=== PATIENT | male | born 1970 | race Caucasian/White ===

== ENCOUNTER 2016-10-07 16:15 | Emergency (ER) | payer OTHER, SELFPAY ==
[~2016-10-07] VITALS: Ht 167.6 cm; Wt 86.2 kg
[2016-10-07] MEDS ORDERED: ZOLO50TA PO (16:43)
[2016-10-07] MEDS ORDERED: FLOM5CAP PO (16:43)
[2016-10-07] MEDS ORDERED: CLON0.5T PO ×2 (16:43→17:41)
[2016-10-07] MEDS ORDERED: GABA-283 PO (16:43)
[2016-10-07] MEDS ORDERED: AMOX875T2 PO (16:43)
[2016-10-07] MEDS ORDERED: TRUL0.5I SC (16:43)
[2016-10-07] MEDS ORDERED: METF500T PO (16:43)
[2016-10-07] MEDS ORDERED: clonazePAM 1 MG TAB PO ONE (17:30)
[2016-10-07] MEDS ORDERED: clonazePAM 0.5 MG TAB PO ONE (18:30)
[2016-10-07 18:47] VITALS: BP 118/71
== END 2016-10-07 18:50 | disposition home or self-care (01) ==
LOC: M ED 17:55
DX: Z76.0 Encounter for issue of repeat prescription (principal); F41.9 Anxiety disorder, unspecified; Z88.2 Allergy status to sulfonamides; Z79.899 Other long term (current) drug therapy; Z79.84 Long term (current) use of oral hypoglycemic drugs; J45.909 Unspecified asthma, uncomplicated; E11.9 Type 2 diabetes mellitus without complications

== ENCOUNTER → 2017-03-15 | Outpatient (REF) | payer MEDICAID, OTHER ==
[~2017-03-15] MED LIST: AMOX875T2 PO; CLON0.5T PO; FLOM5CAP PO; GABA-283 PO; LORA1TAB12 PO; METF500T13 PO; TRUL0.5I SC; ZOLO50TA PO
[2017-03-15 13:59] LABS: ALBUMIN 4.1 GM/DL (3.2-5.2); ALBUMIN/GLOBULIN RATIO 1.28 (1.00-1.93); ALKALINE PHOSPHATASE 120 U/L (45-117); ALT/SGPT 33 U/L (12-78); ANION GAP 9 MEQ/L (8-16); AST/SGOT 16 U/L (15-37); BILIRUBIN,TOTAL 0.3 MG/DL (0.2-1.0); BLOOD UREA NITROGEN 14 MG/DL (7-18); CARBON DIOXIDE LEVEL 27 MEQ/L (21-32); CHLORIDE LEVEL 106 MEQ/L (98-107); CHOLESTEROL LEVEL 194 MG/DL (<200); CREATININE FOR GFR 0.93 MG/DL (0.70-1.30); FREE T4 1.11 NG/DL (0.76-1.46); GLOMERULAR FILTRATION RATE > 60.0 (>60); GLUCOSE, FASTING 144 MG/DL (70-105); POTASSIUM SERUM 4.1 MEQ/L (3.5-5.1); SODIUM LEVEL 142 MEQ/L (136-145); TOTAL PROTEIN 7.3 GM/DL (6.4-8.2); TRIGLYCERIDES LEVEL 124 MG/DL (<150)
== END ==
LOC: M LAB REF 12:33
PROVIDERS: ATTEND Nurse Practitioner Family
DX: E11.9 Type 2 diabetes mellitus without complications (principal)

== ENCOUNTER 2017-04-14 07:51 | Outpatient (RCR) | payer OTHER ==
[~2017-04-14 07:51] MED LIST changes: -LORA1TAB12 PO
== END 2017-04-16 ==
LOC: M PT 07:51
PROVIDERS: ATTEND Family Medicine Addiction Medicine
DX: Z51.89 Encounter for other specified aftercare (principal); M50.91 Cervical disc disorder, unspecified, high cervical region

== ENCOUNTER 2017-04-22 09:25 | Outpatient (RCR) | payer OTHER ==
[2017-04-28] MEDS ORDERED: LORA1TAB12 PO (19:19)
== END 2017-05-17 ==
LOC: M PT 09:25
PROVIDERS: ATTEND Family Medicine Addiction Medicine
DX: Z51.89 Encounter for other specified aftercare (principal); M54.2 Cervicalgia

== ENCOUNTER 2017-04-28 19:01 | Emergency (ER) | payer OTHER ==
[~2017-04-28] VITALS: Ht 167.6 cm; Wt 84.1 kg
[2017-04-28] MEDS ORDERED: LORA1TAB12 PO (19:19)
[2017-04-28] MEDS ORDERED: MORPHINE 4 MG/ML 1ML SYRINGE IM ONE (20:00)
--- NOTE | 2017-04-28 20:50 | REPUSA ---
CT of the head Clinical history: Trauma. Technique: Multiple axial CT images were obtained through the head without administration of contrast . Findings: The ventricles and sulci are symmetric bilaterally. There is no evidence of acute hemorrhag e or infarct. There is no midline shift, mass effect, or extra-axial fluid collection. The osseous st ructures are unremarkable. The visualized paranasal sinuses and mastoid air cells are clear. Impression: Negative study.
--- NOTE | 2017-04-28 20:50 | REPUSA ---
CT of the thoracic spine without contrast Clinical history: Trauma. Technique: Multiple axial CT images were obtained through the thoracic spine without administration o f contrast. Coronal and sagittal 3-D reconstructed images were also obtained. Findings: The vertebral bodies are in satisfactory positioning and alignment. No fractures or dislocations are demonstrated. Intervertebral disc spaces are well-maintained. There is no evidence of facet subluxati on. The neural foramen appear grossly patent. The spinal canal demonstrates normal caliber and contou r without evidence of spinal stenosis. The surrounding soft tissues are within normal limits. Impression: No acute abnormalities appreciated.
--- NOTE | 2017-04-28 20:50 | REPUSA ---
CT of the abdomen and pelvis without contrast Clinical statement: trauma. Technique: Multiple axial CT images were obtained from the iliac crests to the floor of the pelvis ut ilizing 5 mm axial slices without administration of contrast. Coronal and sagittal reconstructions we re also obtained. No comparison is available. Findings: The bowel is unremarkable, with no obstructive or inflammatory changes. The appendix is normal. The u rinary bladder is within normal limits. There is no pelvic lymphadenopathy or ascites. The other pelv ic structures appear unremarkable. There are no suspicious osseous abnormalities seen. Impression: Unremarkable CT examination of the pelvis.
--- NOTE | 2017-04-28 20:50 | REPUSA ---
CT of the cervical spine Clinical history: trauma. Technique: Multiple axial CT images were obtained through the cervical spine without administration o f contrast. Coronal and sagittal 3-D reconstructed images were also obtained. Comparison: None. Findings: The cervical vertebral bodies are in satisfactory positioning and alignment. Anterior surgical fusion of C5 through C7 is intact. No fractures or dislocations are demonstrated. The odontoid process is i ntact. Intervertebral disc spaces are otherwise well-maintained. There is no evidence of facet sublux ation. The neural foramen appear grossly patent. The cervical cranial junction is intact. The cervica l spinal canal demonstrates normal caliber and contour without evidence of spinal stenosis. The surro unding soft tissues are within normal limits. Impression: No acute osseous abnormality. Surgical fusion from C5 through C7 is intact.
--- NOTE | 2017-04-28 21:00 | REPUSA ---
CT of the lumbar spine without contrast Clinical history: trauma. Technique: Multiple axial CT images were obtained through the lumbar spine without administration of contrast. Coronal and sagittal 3-D reconstructed images were also obtained. Findings: The lumbar vertebral bodies are in satisfactory positioning and alignment. No fractures or dislocatio ns are demonstrated. Intervertebral disc spaces are well-maintained. There is no evidence of facet peters bluxation. The neural foramen appear grossly patent. The spinal canal demonstrates normal caliber and contour without evidence of spinal stenosis. The surrounding soft tissues are within normal limits. Impression: Unremarkable CT examination of the lumbar spine.
[2017-04-28 22:13] VITALS: BP 135/82
--- NOTE | 2017-04-29 02:16 | REP ---
Clinical: Trauma. Technique: Neutral and frog lateral views of the right and left hip. Findings: Bilateral hips are relatively symmetric and age appropriate. No acute fracture or dislocation. No osteophytosis or periarticular calcifications. Surrounding soft tissues are unremarkable. Impression: Age-appropriate bilateral hip radiograph series. No acute fracture or dislocation. Signed by Shlomo Mix MD 04/29/2017 02:07 A
== END 2017-04-28 22:14 | disposition home or self-care (01) ==
LOC: M ED 19:01
DX: S39.012A Strain of muscle, fascia and tendon of lower back, initial encounter (principal); W10.9XXA Fall (on) (from) unspecified stairs and steps, initial encounter; Y92.410 Unspecified street and highway as the place of occurrence of the external cause; Y93.01 Activity, walking, marching and hiking; Y99.9 Unspecified external cause status; E11.9 Type 2 diabetes mellitus without complications; N40.0 Benign prostatic hyperplasia without lower urinary tract symptoms; F32.9 Major depressive disorder, single episode, unspecified; Z98.1 Arthrodesis status; Z79.84 Long term (current) use of oral hypoglycemic drugs; Z79.899 Other long term (current) drug therapy; Z88.2 Allergy status to sulfonamides

== ENCOUNTER → 2017-06-20 | Outpatient (REF) | payer OTHER ==
[~2017-06-20] MED LIST changes: +LORA1TAB12 PO
[2017-06-20 15:41] LABS: ALBUMIN 4.3 GM/DL (3.2-5.2); ALBUMIN/GLOBULIN RATIO 1.43 (1.00-1.93); ALKALINE PHOSPHATASE 114 U/L (45-117); ALT/SGPT 30 U/L (12-78); ANION GAP 6 MEQ/L (8-16); AST/SGOT 16 U/L (7-37); BILIRUBIN,TOTAL 0.5 MG/DL (0.2-1.0); BLOOD UREA NITROGEN 15 MG/DL (7-18); CALCIUM LEVEL 9.2 MG/DL (8.5-10.1); CARBON DIOXIDE LEVEL 31 MEQ/L (21-32); CHLORIDE LEVEL 99 MEQ/L (98-107); CHOLESTEROL LEVEL 183 MG/DL (<200); CREATININE FOR GFR 0.98 MG/DL (0.70-1.30); GLOMERULAR FILTRATION RATE > 60.0 (>60); GLUCOSE, FASTING 211 MG/DL (70-105); POTASSIUM SERUM 4.2 MEQ/L (3.5-5.1); SODIUM LEVEL 136 MEQ/L (136-145); TOTAL PROTEIN 7.3 GM/DL (6.4-8.2); TRIGLYCERIDES LEVEL 153 MG/DL (<150)
== END ==
LOC: M LAB REF 14:49
PROVIDERS: ATTEND Family Medicine Addiction Medicine
DX: E11.9 Type 2 diabetes mellitus without complications (principal)

== ENCOUNTER → 2017-07-06 | Outpatient (REF) | payer OTHER | LOC: M LAB REF 13:03 | PROVIDERS: ATTEND Family Medicine Addiction Medicine | DX: N40.0 Benign prostatic hyperplasia without lower urinary tract symptoms (principal) ==

== ENCOUNTER → 2017-09-02 | Outpatient (REF) | payer OTHER ==
[2017-09-02 13:57] LABS: APPEARANCE, URINE CLEAR (CLEAR); BACTERIA, URINE AUTO NEGATIVE (NEGATIVE); BILIRUBIN, URINE AUTO NEGATIVE (NEGATIVE); BLOOD, URINE BLOOD NEGATIVE (NEGATIVE); COLOR, URINE YELLOW (YELLOW); GLUCOSE, URINE (UA) AUTO 3+ mg/dL (NEGATIVE); KETONE, URINE AUTO NEGATIVE (NEGATIVE); LEUKOCYTE ESTERASE, URINE AUTO NEGATIVE (NEGATIVE); NITRITE, URINE AUTO NEGATIVE (NEGATIVE); PROTEIN, URINE AUTO NEGATIVE (NEGATIVE); RBC, URINE AUTO 0 /HPF (0-3); SPECIFIC GRAVITY URINE AUTO 1.012 (1.002-1.035); SQUAMOUS EPITHELIAL CELL UR AU 0 /HPF (0-6); UROBILINOGEN, URINE AUTO 0.2 mg/dL (0.0-2.0); WBC, URINE AUTO 1 /HPF (0-3)
== END ==
LOC: M SMT 13:24
DX: R35.0 Frequency of micturition (principal)

== ENCOUNTER 2017-09-27 10:04 | Emergency (ER) | payer OTHER | END 2017-09-27 11:59 | disposition home or self-care (01) | LOC: M ED 10:04 | DX: G89.29 Other chronic pain (principal); M54.2 Cervicalgia; F32.9 Major depressive disorder, single episode, unspecified; E11.9 Type 2 diabetes mellitus without complications; M43.22 Fusion of spine, cervical region; Z79.84 Long term (current) use of oral hypoglycemic drugs; Z79.899 Other long term (current) drug therapy; Z88.2 Allergy status to sulfonamides | CPT/HCPCS: 99282 ==

== ENCOUNTER 2017-10-08 01:49 | Emergency (ER) | payer OTHER ==
[2017-10-08 03:52] LABS: BASO # 0.1 10^3/uL (0.0-0.2); BASO % 0.9 % (0.0-1.0); EOS # 0.2 10^3/uL (0.0-0.50); EOS % 3.5 % (0.0-3.0); HEMATOCRIT 40.5 % (42.0-52.0); HEMOGLOBIN 13.8 g/dl (14.0-18.0); IMMATURE GRANULOCYTE % 0.2 % (0-3.0); LYMPH # 1.8 10^3/uL (1.5-4.5); LYMPH % 33.9 % (24.0-44.0); MEAN CORPUSCULAR HEMOGLOBIN 28.9 pg (27.0-33.0); MEAN CORPUSCULAR HGB CONC 34.1 g/dl (32.0-36.5); MEAN CORPUSCULAR VOLUME 84.7 fl (80.0-96.0); MONO # 0.4 10^3/uL (0.0-0.8); MONO % 6.5 % (0.0-5.0); PLATELET COUNT, AUTOMATED 173 10^3/uL (150-450); RED BLOOD COUNT 4.78 10^6/uL (4.30-6.10); RED CELL DISTRIBUTION WIDTH 12.5 % (11.5-14.5); WHITE BLOOD COUNT 5.4 10^3/uL (4.0-10.0)
[2017-10-08] MEDS: NS 1,000 ML IV (03:53)
[2017-10-08] MEDS: KETOROLAC 30 MG/ML VIAL (J1885) IV (03:53)
[2017-10-08 03:59] LABS: VENOUS BASE EXCESS 1.6 (-2.0-2.0); VENOUS HCO3 29.1 MEQ/L (23.0-27.0); VENOUS O2 SATURATION 53.8 % (60.0-80.0); VENOUS PARTIAL PRESSURE CO2 57.7 mmHg (38.0-50.0); VENOUS PARTIAL PRESSURE O2 30.5 mmHg (30.0-50.0); VENOUS STANDARD HCO3 24.8 MEQ/L; VENOUS TOTAL CO2 30.8 MEQ/L (24.0-28.0)
[2017-10-08 04:11] LABS: ANION GAP 6 MEQ/L (8-16); BLOOD UREA NITROGEN 16 MG/DL (7-18); CALCIUM LEVEL 8.4 MG/DL (8.5-10.1); CARBON DIOXIDE LEVEL 31 MEQ/L (21-32); CHLORIDE LEVEL 100 MEQ/L (98-107); CREATININE FOR GFR 1.01 MG/DL (0.70-1.30); GLOMERULAR FILTRATION RATE > 60.0 (>60); OSMOLALITY SERUM 308 MOSM/KG (275-295); POTASSIUM SERUM 4.1 MEQ/L (3.5-5.1); SODIUM LEVEL 137 MEQ/L (136-145)
[2017-10-08 04:31] LABS: GLUCOSE, FASTING 415 MG/DL (70-100)
[2017-10-08] MEDS: HumuLIN R (REGULAR) INSULIN (NovoLIN R) **100U/ML** PER UNIT IV (05:59)
[2017-10-08] MEDS: MECLIZINE 25 MG TABLET PO (05:59)
[2017-10-08 06:41] LABS: BEDSIDE GLUCOSE 218 MG/DL (70-105)
== END 2017-10-08 06:45 | disposition home or self-care (01) ==
LOC: M ED 01:49
DX: E11.65 Type 2 diabetes mellitus with hyperglycemia (principal); M51.9 Unspecified thoracic, thoracolumbar and lumbosacral intervertebral disc disorder; Z79.899 Other long term (current) drug therapy; Z79.4 Long term (current) use of insulin; Z88.1 Allergy status to other antibiotic agents; Z88.2 Allergy status to sulfonamides
CPT/HCPCS: J1885

== ENCOUNTER → 2017-10-17 | Outpatient (CLI) | payer OTHER | LOC: M RAD 16:29 | DX: M54.2 Cervicalgia (principal) | CPT/HCPCS: 72141 ==

== ENCOUNTER → 2017-11-03 | Outpatient (CLI) | payer OTHER ==
[2017-11-03 13:44] LABS: INR 1.02; PARTIAL THROMBOPLASTIN TIME 26.9 SECONDS (26.8-37.9); PROTHROMBIN TIME 13.5 SECONDS (12.4-14.5)
[2017-11-03 13:47] LABS: HEMATOCRIT 39.7 % (42.0-52.0); HEMOGLOBIN 13.8 g/dl (13.5-17.5); MEAN CORPUSCULAR HEMOGLOBIN 29.1 pg (27.0-33.0); MEAN CORPUSCULAR HGB CONC 34.8 g/dl (32.0-36.5); MEAN CORPUSCULAR VOLUME 83.8 fl (80.0-96.0); PLATELET COUNT, AUTOMATED 182 10^3/uL (150-450); RED BLOOD COUNT 4.74 10^6/uL (4.30-6.10); RED CELL DISTRIBUTION WIDTH 12.5 % (11.5-14.5); WHITE BLOOD COUNT 5.6 10^3/uL (4.0-10.0)
[2017-11-03 13:54] LABS: ANION GAP 8 MEQ/L (8-16); BLOOD UREA NITROGEN 16 MG/DL (7-18); CARBON DIOXIDE LEVEL 28 MEQ/L (21-32); CHLORIDE LEVEL 104 MEQ/L (98-107); CREATININE FOR GFR 0.92 MG/DL (0.70-1.30); GLOMERULAR FILTRATION RATE > 60.0 (>60); GLUCOSE, FASTING 179 MG/DL (70-100); POTASSIUM SERUM 4.4 MEQ/L (3.5-5.1); SODIUM LEVEL 140 MEQ/L (136-145)
== END ==
LOC: M SMT 10:17
DX: Z01.818 Encounter for other preprocedural examination (principal); N35.9 Urethral stricture, unspecified; N39.0 Urinary tract infection, site not specified
CPT/HCPCS: 80048

== ENCOUNTER 2017-11-11 12:07 | Day surgery (SDC) | payer OTHER ==
[2017-11-11] MEDS ORDERED: PROPOFOL 200 MG/20 ML VIAL As Ordered (12:28)
[2017-11-11] MEDS ORDERED: LIDOCAINE 2% INJ 100 MG/5 ML SDV (FOR ANES.) As Ordered (12:28)
[2017-11-11] MEDS ORDERED: dexameTHASONE 4 MG/ML 1ML VIAL (J1100) As Ordered (12:28)
[2017-11-11] MEDS ORDERED: ONDANSETRON 4MG/2ML VIAL (J2405) As Ordered (12:28)
[2017-11-11] MEDS ORDERED: fentaNYL 100 MCG/2 ML INJECTION (J3010) As Ordered (12:29)
[2017-11-11] MEDS ORDERED: MIDAZOLAM INJ 2 MG/2 ML VIAL (J2250) As Ordered (12:30)
[2017-11-11 13:18] LABS: BEDSIDE GLUCOSE 115 MG/DL (70-105)
[2017-11-11 14:21] LABS: BEDSIDE GLUCOSE 121 MG/DL (70-105)
[2017-11-11] MEDS ORDERED: fentaNYL 100 MCG/2 ML INJECTION (J3010) IV (14:30)
[2017-11-11] MEDS ORDERED: ONDANSETRON 4MG/2ML VIAL (J2405) IV (14:30)
[2017-11-11] MEDS ORDERED: ACETAMINOPHEN TAB 650MG DOSE (2X325MG) PO (14:30)
[2017-11-11] MEDS ORDERED: LR 1,000 ML IV (14:30)
[2017-11-11] MEDS ORDERED: KETOROLAC 30 MG/ML VIAL (J1885) IV (14:30)
== END 2017-11-11 16:20 | disposition home or self-care (01) ==
LOC: M SDC 16:20
DX: N35.9 Urethral stricture, unspecified (principal); J45.909 Unspecified asthma, uncomplicated; G47.30 Sleep apnea, unspecified; E11.9 Type 2 diabetes mellitus without complications; Z79.4 Long term (current) use of insulin; Z79.899 Other long term (current) drug therapy
CPT/HCPCS: 52276